=== PATIENT | female | born 1990 | race Caucasian/White ===

== ENCOUNTER 2021-03-09 11:57 | Emergency (ER) | payer MEDICAID ==
[~2021-03-09] VITALS: Ht 160 cm; Wt 61.5 kg
[~2021-03-09 11:57] MED LIST: CLON-529 PO; FLUC200T PO
[2021-03-09] MEDS ORDERED: IBUP-1985 PO (13:11)
[2021-03-09] MEDS ORDERED: PENI500T2 PO (13:11)
[2021-03-09 13:21] VITALS: BP 125/78
== END 2021-03-09 13:38 | disposition home or self-care (01) ==
LOC: ER 11:57
DX: K04.7 Periapical abscess without sinus (principal); H02.845 Edema of left lower eyelid; Z88.1 Allergy status to other antibiotic agents; Z79.2 Long term (current) use of antibiotics; Z79.899 Other long term (current) drug therapy; Z72.89 Other problems related to lifestyle
CPT/HCPCS: 99283

== ENCOUNTER 2022-05-21 11:20 | Emergency (ER) | payer MEDICAID ==
[~2022-05-21] VITALS: Ht 160 cm; Wt 65.0 kg
[~2022-05-21 11:20] MED LIST changes: +IBUP-1985 PO
[2022-05-21 11:21] VITALS: BP 144/68
[2022-05-21] MEDS ORDERED: penicillin V potassium 500mg tablet PO ONE (11:55)
[2022-05-21] MEDS ORDERED: PENI250T2 PO (11:55)
[2022-05-21] MEDS ORDERED: naproxen 500mg tablet PO ONE (11:55)
[2022-05-21] MEDS ORDERED: NAPR-56 PO (11:55)
== END 2022-05-21 12:17 | disposition home or self-care (01) ==
LOC: ER 11:20
DX: K04.7 Periapical abscess without sinus (principal); K08.89 Other specified disorders of teeth and supporting structures; R22.9 Localized swelling, mass and lump, unspecified; Z88.0 Allergy status to penicillin; Z88.6 Allergy status to analgesic agent
CPT/HCPCS: 99283